=== PATIENT | female | born 1985 | race Caucasian/White ===

== ENCOUNTER 2016-09-30 19:09 | Emergency (ER) | payer OTHER ==
[~2016-09-30] VITALS: Ht 157.5 cm; Wt 87.0 kg
[~2016-09-30 19:09] MED LIST: AMOXICILLIN875 MG OR; CIPROFLOXACN500 MG PO; DIFLUCAN150 MG OR; DOXYCYCL HYC100 MG OR; EPIPEN0.3 MG IM; EXCEDRIN OR; FLAGYL500 MG OR; FLAGYL500 MG PO; FLEXERIL PO; LORTAB 5 OR; NAPROSYN500 MG PO; PAROXETINE20 MG PO; ROCEPHIN 2250 MG/VIA IM; SPRINTEC 2828 DAY OR; ULTRAM50 M1 PO
[2016-09-30] MEDS ORDERED: LIPITOR20 MG PO (20:00)
[2016-09-30] MEDS ORDERED: B121000 MCG PO (20:01)
[2016-09-30] MEDS ORDERED: XANAX0.5 MG PO (20:02)
[2016-09-30] MEDS ORDERED: LEXAPRO20 MG PO (20:03)
[2016-09-30 20:04] LABS: HEMATOCRIT 43.4 % (37.0-47.0); HEMOGLOBIN 14.4 g/dl (12.0-16.0); IMMATURE GRANULOCYTES 0.4 % (0.0-1.0); MEAN CELL VOLUME 93.3 fL CALC (80.0-100.0); MEAN CORPUSCULAR HGB CONC 33.2 g/L CALC (32.0-36.0); NEUT# 8.02 thou/uL (2.00-7.15); RED BLOOD COUNT 4.65 mill/uL (4.20-5.60); RED CELL DISTRI WIDTH 12.1 % (11.5-15.5)
[2016-09-30] MEDS ORDERED: TEMAZEPAM15 MG PO (20:04)
[2016-09-30] MEDS ORDERED: FOLIC ACID1 MG PO (20:05)
[2016-09-30] MEDS ORDERED: ASPIRIN81 MG PO (20:06)
[2016-09-30 20:15] LABS: ALBUMIN 4.7 g/dL (3.2-5.0); ALKALINE PHOSPHATASE 53 u/l (38-126); ANION GAP 16 (6-22 (CALC)); BILIRUBIN, TOTAL 0.6 mg/dL (0.0-1.4); BUN 12 mg/dL (7-17); BUN/CREATININE RATIO 20 (12-20 (CALC)); CALCIUM 9.1 mg/dL (8.4-10.2); CARBON DIOXIDE 25 mmol/l (22-30); CHLORIDE 103 mmol/l (95-108); CREATININE 0.6 mg/dL (0.5-1.0); GFR > 60 ML/MIN (>=60 (CALC)); GFR FOR AFR.AMER. > 60 ML/MIN (>=60 (CALC)); GLUCOSE 80 mg/dL (65-105); POTASSIUM 3.5 mmol/l (3.5-5.1); SGOT/AST 21 u/l (14-36); SGPT/ALT 31 u/l (9-52); SODIUM 140 mmol/l (137-146); TOTAL PROTEIN 7.9 g/dL (6.3-8.2)
[2016-09-30 20:16] LABS: BARBITURATES POSITIVE (NEGATIVE); COCAINE NEGATIVE (NEGATIVE); METHADONE NEGATIVE (NEGATIVE); TETRAHYDROCANNABIONOL NEGATIVE (NEGATIVE); TRICYLIC ANTIDEPRESSANTS POSITIVE (NEGATIVE); URINE BILIRUBIN - DIPSTICK NEGATIVE (NEGATIVE); URINE BLOOD DIPSTICK TRACE-LYSED (NEGATIVE); URINE CLARITY CLEAR; URINE COLOR YELLOW; URINE GLUCOSE - DIPSTICK NEGATIVE (NEGATIVE); URINE KETONE NEGATIVE (NEGATIVE); URINE LEUK ESTERASE NEGATIVE (NEGATIVE); URINE NITRITE - DIPSTICK NEGATIVE (Negative); URINE PROTEIN - DIPSTICK 100 mg/dL (NEG-TRACE); URINE UROBILINOGEN - DIPSTICK 0.2 E.U./dL (0.2)
[2016-09-30 20:17] LABS: OXCYCODONE NEGATIVE (NEGATIVE)
[2016-09-30 20:18] LABS: INTERNATIONAL NORMALIZED RATIO 0.9 RATIO (0.7-1.3)
[2016-09-30] MEDS ORDERED: ADDERALL20 MG PO (20:20)
[2016-09-30] MEDS ORDERED: HYDROCHLOROT12.5 MG PO (20:20)
[2016-09-30] MEDS ORDERED: BUT/APAP/CAF PO (20:21)
[2016-09-30 20:26] LABS: URINE SQUAMOUS EPITHELIAL CELL MODERATE EPI/hpf (0-FEW)
[2016-09-30 20:27] LABS: MYOGLOBIN 26 ng/mL (0 - 62)
[2016-09-30] MEDS ORDERED: AUGMENTIN875TAB PO (21:27)
[2016-09-30 21:47] VITALS: BP 136/86
== END 2016-09-30 21:53 | disposition home or self-care (01) | DRG 153 ==
LOC: ED 19:09
PROVIDERS: Emergency Medicine
DX: H70.91 Unspecified mastoiditis, right ear (principal); F17.210 Nicotine dependence, cigarettes, uncomplicated; Z91.14 Patient's other noncompliance with medication regimen

== ENCOUNTER 2017-06-25 16:29 | Emergency (ER) | payer OTHER ==
[~2017-06-25] VITALS: Ht 157.5 cm; Wt 91.8 kg
[~2017-06-25 16:29] MED LIST changes: +ADDERALL20 MG PO; +ASPIRIN81 MG PO; +AUGMENTIN875TAB PO; +B121000 MCG PO; +BUT/APAP/CAF PO; +FOLIC ACID1 MG PO; +HYDROCHLOROT12.5 MG PO; +LEXAPRO20 MG PO; +LIPITOR20 MG PO; +TEMAZEPAM15 MG PO; +XANAX0.5 MG PO
[2017-06-25] MEDS ORDERED: MOTRIN800 MG PO (16:50)
[2017-06-25] MEDS ORDERED: FLEXERIL PO (16:59)
[2017-06-25 17:02] VITALS: BP 146/101
== END 2017-06-25 16:56 | disposition home or self-care (01) | DRG 605 ==
LOC: ED 16:29
DX: S00.03XA Contusion of scalp, initial encounter (principal); F17.210 Nicotine dependence, cigarettes, uncomplicated; V53.5XXA Driver of pick-up truck or van injured in collision with car, pick-up truck or van in traffic accident, initial encounter

== ENCOUNTER 2018-06-15 14:01 | Emergency (ER) | payer OTHER ==
[~2018-06-15] VITALS: Ht 157.5 cm; Wt 92.3 kg
[~2018-06-15 14:01] MED LIST changes: +MOTRIN800 MG PO
[2018-06-15 14:27] LABS: HEMATOCRIT 40.1 % (37.0-47.0); HEMOGLOBIN 13.2 g/dl (12.0-16.0); IMMATURE GRANULOCYTES 0.5 % (0.0-5.0); MEAN CELL VOLUME 93.7 fL CALC (80.0-100.0); MEAN CORPUSCULAR HGB 30.8 pG CALC (26.0-32.0); MEAN CORPUSCULAR HGB CONC 32.9 g/L CALC (32.0-36.0); NEUT# 5.58 thou/uL (2.00-7.15); RED BLOOD COUNT 4.28 mill/uL (4.20-5.60); RED CELL DISTRI WIDTH 12.8 % (11.5-15.5)
[2018-06-15 14:50] LABS: ANION GAP 18 (6-22 (CALC)); BUN 12 mg/dL (7-17); BUN/CREATININE RATIO 18 (12-20 (CALC)); CARBON DIOXIDE 18 mmol/l (22-30); CHLORIDE 108 mmol/l (95-108); CREATININE 0.6 mg/dL (0.5-1.0); GFR > 60 ML/MIN (>=60 (CALC)); GFR FOR AFR.AMER. > 60 ML/MIN (>=60 (CALC)); POTASSIUM 3.7 mmol/l (3.5-5.1); SODIUM 140 mmol/l (137-146)
[2018-06-15] MEDS ORDERED: PREDNISONE50 MG PO (15:07)
[2018-06-15] MEDS ORDERED: EPIPEN 2-P0.3 MG/0.3 IM (15:07)
[2018-06-15 15:32] VITALS: BP 134/87
== END 2018-06-15 15:38 | disposition home or self-care (01) ==
LOC: ED 14:01
PROVIDERS: Family Medicine
DX: T63.441A Toxic effect of venom of bees, accidental (unintentional), initial encounter (principal); F17.200 Nicotine dependence, unspecified, uncomplicated; Y92.34 Swimming pool (public) as the place of occurrence of the external cause; R11.10 Vomiting, unspecified; R42 Dizziness and giddiness